=== PATIENT | female | born 1980 | race Caucasian/White ===

== ENCOUNTER 2022-01-10 13:53 | Emergency (ER) | payer BC ==
--- OUTSIDE RECORDS SUMMARY | 2022-01-10 13:54 | XMS REPORT | Clinical Summary ---
:1980 Author Organization [facility] MD [facility] Address [address] [place] [address] Care Team Providers Name Role Phone Edwina Phelps NP Primary Care Provider Donte White MD Unavailable Allergies Active Allergy Reactions Severity Noted Date Comments Penicillin G Hives 04/19/1983 Medications Medication Sig Dispensed Refills Start Date End Date Status buPROPion (Wellbutrin Take 1 tablet by 0 04/19/2015 Active XL) 300 mg 24 hr tablet mouth daily. desvenlafaxine (Pristiq) Take 1 tablet by 0 Active 50 MG ER tablet mouth daily. thyroid (AIR CONDITIONING SPECIALIST Thyroid) 60 Take 1 tablet by 0 9 Active mg tablet mouth daily. 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 Abnormal uterine bleeding unrelated to 2014 A blation for heavy/irregular periods menstrual cycle Depressive disorder 2008 Wellbutrin and Prist ique Other abnormal and inconclusive 04/22/2020 findings on diagnostic imaging of breast Lump in left breast 04/22/2020 Family History Medical History Relation Name Comments Skin cancer Father Jatin Garcia Several skin can cers Breast cancer Maternal Grandmother Hellen Nelson of magui ast cancer that had matassisized Uterine cancer Maternal Grandmother Hellen Nelson Colon cancer Paternal Grandfather Luis Armando Garcia Breast cancer Paternal Grandmother Maryan Patrick Maternal gr eat grand double mastectomy at 50 Relation Name Status Comments Father Jatin Garcia Alive Maternal Grandmother Hellen Nelson Paternal Grandfather Luis Armando Garcia Paternal Grandmother Maryan Patrick Social History Tobacco Use Types Packs/Day Years Used Date Former Smoker Cigarettes 1 3 08/05/1999 - 0 03/05/2003 Smokeless Tobacco: Never Used Comments: Smoked in college Alcohol Use Standard Drinks/Week Comments Not Currently 0 (1 standard drink = 0.6 oz pure alcoho l) Sober since 2018 Alcohol Habits Answer Date Recorded How often do you have a drink containing alcohol? Not asked How many drinks containing alcohol do you have on a Not aske d typical day when you are drinking? How often do you have six or more drinks on one Not asked occasion? Comment: Sober since 201704/22/2020 Sex Assigned at Date Recorded Female 04/16/2020 7:17 AM CDT Obstetrics History Para Term AB IAB SAB Ectopic Multiple Living Live Births 3 2 1 Date Outcome GA Total Labor/2nd/3rd Weight Sex Delivery Anes PTL Grecia A 1 A5 Name Clin Labor Para Para AB Comments Menarche: 13 Parity: 24 OBC: none Hormonal Therapy: pel lets Last Pap: 04-18-2020 (OS) pending result s Abnormal Pap: none Last Mia: 10-16-2019 (OS) Last Colon: age < 50 Breast Bx: none Last Filed Vital Signs Not on file Plan of Treatment Health Maintenance Due Date Last Done Comments COVID-19 Vaccination (1) 1983 Results Not on fileafter 01/10/2021 Insurance Payer Benefit Plan / Subscriber ID Effective Dates Phone Addre ss Type Group [employer]UE [employer] [place] PPO POS [id number] 2019-Present [id number] PPO [place] [address] Care Teams Md Pediatric Allergist Relationship Specialty Start Date End Date Ivy Bland NP PCP - General Cancer Prevention 04/19/[address] [place] [id number] Jose White, PCP - External Follow Up Family Practice 04/05 03/24 MD Helms [address] [place] [id number]
--- OUTSIDE RECORDS SUMMARY | 2022-01-10 13:55 | XMS REPORT | Continuity of Care Document ---
:1980 Author Organization [facility] t Address [address] [place] [address] Care Team Providers Name Role Phone THI Primary Care Physician Unavailable SYSTEM, NOT IN Attending Clinician Unavailable RADIOLOGY Attending Clinician Unavailable Radiology Attending Clinician Unavailable Dana SOLER, S Attending Clinician Kelby CORTEZ Attending Clinician Unavailable Payton WILKINS Attending Clinician Unavailable THI Attending Clinician Unavailable DEA Admitting Clinician Unavailable Payers Payer Name Policy Type Policy Number Effective Date Expiration Date S ource [facility] [id number] 2019 00:00:00 [place] [id number] 2019 00:00:00 Problems Condition Condition Condition Status Onset Resolution Last Treating Co mments Source Name Details Category Date Date Treatment Clinician Date No known No known Disease Unive rs active active ity of problems problems [facility] [place] [facility] Allergies, Adverse Reactions, Alerts Allergy Allergy Status Severity Reaction(s) Onset Inactive Treating Comm ents Source Name Type Date Date Clinician Penicill Propensi Active Rash 0 Univer s in ty to 02-03 ity of adverse 00:00: [place] reaction [address] [facility] PENICILL DRUG Active Rash 0 Univers IN INGREDI 02-03 ity of 00:00: [place] 00 [facility] NO KNOWN Drug Active Univers ALLERGIE Class ity of S [facility] Social History Social Habit Start Date Stop Date Quantity Comments Source History of tobacco Smoker [facility] [place] use Medical [place] Exposure to Not sure [facility] SARS-CoV-2 (event) Medica l Branch Tobacco use and 2021-02-03 2021-02-[address] [facility] exposure 00:00:00 00:00:00 Medical Branch Sex Assigned At [birth year] [facility] y [facility] 00:00:00 00:00:00 Medical Branch Smoking Status Start Date Stop Date Source Former smoker 2021-02-03 00:00:00 2021-02-03 00:00:00 [facility] Medical Branch Medications Ordered Filled Start Stop Current Ordering Indication Dosage Frequency Signature Comments Components Source Medication Medication Date Date Medication? Clinician (SIG) Name Name methylPREDN 2020-08 Yes [id number] 84mg Take 21 Univers ISolone 0-04 9100 tablets by ity of (MEDROL, 00:00: mouth [place] DEANNA,) 4 mg 00 SEE-INSTRU Med ical tablets CTIONS. Branch follow package directions Diclofenac 2020-08 Yes [id number] Apply to Univers Sodium 1 % 0-04 9100 area(s) 2 ity of gel 00:00: (two) [place] 00 times Medical daily as Branch needed for Pain (scale 4-6) (Apply 2 g do not exceed 4 g in a day). methylPREDN 2020-08 Yes [id number] 84mg Take 21 Univers ISolone 0-04 9100 tablets by ity of (MEDROL, 00:00: mouth [place] DEANNA,) 4 mg 00 SEE-INSTRU Med ical tablets CTIONS. Branch follow package directions Diclofenac 2020-08 Yes [id number] Apply to Univers Sodium 1 % 0-04 9100 area(s) 2 ity of gel 00:00: (two) [place] 00 times Medical daily as Branch needed for Pain (scale 4-6) (Apply 2 g do not exceed 4 g in a day). buPROPion Yes TAKE ONE Univ ers XL 300 mg 8-19 (1) ity of 24 hr 00:00: TABLET(S) [place] tablet 00 BY MOUTH Medical ONCE A DAY Branch IN THE MORNING. buPROPion Yes TAKE ONE Univ ers XL 300 mg 8-19 (1) ity of 24 hr 00:00: TABLET(S) [place] tablet 00 BY MOUTH Medical ONCE A DAY Branch IN THE MORNING. doxycycline Yes 100mg Take 100 U nivers hyclate 100 6-09 mg by ity of mg tablet 00:00: mouth [place] 00 now. Medical Branch doxycycline 2021-0 Yes 100mg Take 100 U nivers hyclate 100 6-09 mg by ity of mg tablet 00:00: mouth [place] 00 now. Medical Branch LEAD SYSTEMS ANALYST THYROID 2020-0 Yes 60mg Take 60 mg U nivers 60 mg 6-05 by mouth ity of tablet 00:00: once now. [address] LEAD SYSTEMS ANALYST THYROID 2020-0 Yes 60mg Take 60 mg U nivers 60 mg 6-05 by mouth ity of tablet 00:00: once now. [address] Vital Signs Vital Name Observation Time Observation Value Comments Source Systolic blood 2021-05-08 20:44:00 116 mm[Hg] Univer sity [facility] Diastolic blood 2021-05-08 20:44:00 69 [facility]Hg[facility] 2021-05-08 20:44:00 102 /min [facility] Body height 2021-05-08 20:44:00 160 cm [facility] Body weight 2021-05-08 20:44:00 70.126 kg [facility] BMI 2021-05-08 20:44:00 27.39 kg/m2 [facility] HEIGHT 2020-04-22 10:17:46 161 cm WEIGHT 2020-04-22 10:17:46 69.9 kg Procedures This patient has no known procedures. Encounters Start End Encounter Admission Attending Care Care Encounter Source Date/Time Date/Time Type Type Clinicians Facility Department ID 2020-04-18 Outpatient SYSTEM, [facility] [id number] 15:37:02 PROVIDER Gilmer barlow 2021-06-01 2021-06-01 Outpatient R RADIOLOGY [facility] RAD [id number] Univers 15:11:04 23:59:00 ity of [facility] 2021-06-01 2021-06-01 Hospital Radiology [facility] [id number] Univers 15:00:00 23:59:00 Encounter ESTEFANÍA [id number] [facility] [id number] [facility] [id number] [place] [id number] Branch 2021-06-01 2021-06-01 Outpatient [facility] [id number] Univers 15:00:00 15:00:00 [id number] [facility] 2021-05-08 2021-05-08 [facility] [id number] Univers 15:19:58 15:34:58 Visit [facility] [id number] it y [facility] [id number] Blake as Tanmay?Blea [id number] [address] Medical Office [facility] 2021-05-08 2021-05-08 [facility] [id number] Univers 15:15:00 15:15:00 MARTIN [id number] [facility] 2021-05-08 2021-05-08 [facility] [id number] Univers 15:15:00 15:15:00 [facility] 2021-02-08 2021-02-08 [facility] NUT [id number] Univers 00:00:00 00:00:00 ROSANGELA [facility] 2021-02-03 2021-02-03 [facility] [id number] Univers 08:30:00 08:30:00 ROSANGELA [id number] [facility] 2021-02-03 2021-02-03 [facility] [id number] Univers 08:30:00 08:30:00 [facility] 2020-04-22 2020-04-22 Outpatient MARINO NESS MDA MDA [id number] 13:55:19 23:59:00 CANDICE barlow 2020-04-22 2020-04-22 Outpatient MARINO GALVEZTHI, MDA MDA [id number] 15:33:57 16:15:24 CANDICE barlow 2020-04-22 2020-04-22 Outpatient MARINO NESS MDA MDA [id number] 12:46:38 13:54:00 CANDICE barlow 2020-04-22 2020-04-22 Outpatient MARINO GALVEZTHI, MDA MDA [id number] 09:55:15 11:05:37 CANDICE barlow 2020-04-22 2020-04-22 Outpatient MARINO NESS MDA MDA [id number] 09:56:27 09:56:27 CANDICE Jacobsers o yen 2020-04-22 2020-04-22 Outpatient MARINO NESS MDA MDA [id number] 09:48:44 09:48:44 CANDICE Scherer o yen 2020-04-22 2020-04-22 Outpatient MARINO NESS MDA MDA [id number] 09:48:42 09:48:42 CANDICE Scherer o yen 2020-04-22 2020-04-22 Outpatient MARINO NESS MDA MDA [id number] 09:48:39 09:48:39 CANDICE Scherer o yen 2020-04-22 2020-04-22 Outpatient MDA MDA [id number] 09:46:28 09:46:36 Gilmer barlow 2020-04-20 2020-04-20 Outpatient MARINO NESS MDA MDA [id number] 08:53:05 09:04:28 CANDICE barlow 2020-04-12 2020-04-12 Outpatient R RADIOLOGY [facility] [id number] Univers 08:30:00 08:30:00 [id number] ity [facility] 2020-04-12 2020-04-12 Outpatient R RADIOLOGY [facility] [id number] Univers 00:00:00 00:00:00 ity [facility] 2019-10-16 2019-10-16 Outpatient R RADIOLOGY [facility] [id number] Univers 10:31:48 23:59:00 [facility] Results This patient has no known results.
[2022-01-10 14:47] LABS: Urine Blood Negative (Negative); Urine Glucose Negative (Negative); Urine Protein Negative (Negative); Urine Specific Gravity 1.025 (1.005-1.030); Urine pH 5.5 (5.0-7.0)
[2022-01-10 15:03] LABS: Absolute Lymphocytes (CBC) 1.5 K/uL (0.7-4.9); Hematocrit 38.3 % (36.0-45.0); Lymphocytes % 19.9 % (15.3-44.8); MPV 7.5 fL (7.6-11.3); RBC Red Blood Cell Count 4.56 M/uL (3.86-4.86)
[2022-01-10 15:07] LABS: Barbiturates NEGATIVE (NEGATIVE); Benzodiazepines NEGATIVE (NEGATIVE); Cocaine NEGATIVE (NEGATIVE); METHAMPHETAM POSITIVE (NEGATIVE); Methadone NEGATIVE (NEGATIVE); Opiates NEGATIVE (NEGATIVE); Phencyclidine NEGATIVE (NEGATIVE); THC Cannibis POSITIVE (NEGATIVE)
[2022-01-10 15:11] LABS: Protime INR 0.97
[2022-01-10 15:24] LABS: ALT/SGPT 19 U/L (12-78); AST/SGOT 15 U/L (15-37); Alkaline Phosphatase 45 U/L (45-117); BUN Blood Urea Nitrogen 14 mg/dL (7-18); Bicarbonate 24 mmol/L (21-32); Bilirubin Total 0.4 mg/dL (0.2-1.0); Glomerular Filtration Rate 75 ml/min (=/>90); Glucose Level 141 mg/dL (74-106); NT PRO-BNP 66 pg/mL (<125); Potassium 3.2 mmol/L (3.5-5.1); Protein, Total 7.1 g/dL (6.4-8.2); Sodium Level 136 mmol/L (136-145); Troponin High Sensitivity 5.5 pg/mL (<58.9)
[2022-01-10 15:31] LABS: Bilirubin Direct < 0.1 mg/dL (0-0.2)
[2022-01-10 15:37] LABS: Urine Specific Gravity/Preg 1.025 (1.005-1.030)
[2022-01-10] MEDS ORDERED: LORazepam 2 MG/ML VIAL ONE (15:41)
--- NOTE | 2022-01-10 15:42 | RAD REPORT ---
EXAM DESCRIPTION: Corrina Single View01/10/2022 3:00 pm CLINICAL HISTORY: Chest pain COMPARISON: none FINDINGS: The lungs appear clear of acute infiltrate Blunting of the right lateral costophrenic sulci could indicate a small pleural effusion or pleural t hickening The heart is normal size
--- NOTE | 2022-01-10 16:34 | RAD REPORT ---
EXAM DESCRIPTION: CT - Chest For Pe Angio - 01/10/2022 4:22 pm CLINICAL HISTORY: Chest pain COMPARISON: None. TECHNIQUE: Dynamically enhanced axial 3 mm thick images of the chest were obtained during administra tion of <100> mL Isovue 370 IV contrast. Coronal and oblique reconstruction images were generated and reviewed. Exam utilizes a protocol for optimal evaluation of pulmonary arterial tree. Maximum intensity projections 3D imaging was utilized All CT scans are performed using dose optimization technique as appropriate and may include automated exposure control or mA/KV adjustment according to patient size. FINDINGS: A pulmonary embolus is not seen. A thoracic aortic aneurysm is not noted. A pleural effusion is not seen. A pericardial effusion is not seen. A lung consolidation is not present. Mild chronic opacities within the right lung IMPRESSION: Negative for a pulmonary embolism.
[2022-01-10] MEDS ORDERED: POTASSIUM 25 MEQ EFFERV TAB ONE (17:03)
[2022-01-10] MEDS ORDERED: KETOROLAC 30 MG/ML INJ ONE (17:23)
--- NOTE | 2022-01-10 18:26 | EDPHYS ---
Physician Documentation [facility] Name: Lorie Petty Age: 41 yrs Sex: Female : 1980 Arrival Date: 01/10/2022 Time: 13:53 Bed 16 Private MD: ED Physician Robbie Be HPI: 01/10 14:20 This 41 yrs old Female presents to ER via Wheelchair with complaints of Chest Pain, cp Weakness. 14:20 The patient or guardian reports chest pain that is located primarily in the left cp lateral posterior chest and left lateral anterior chest and left anterior chest. 14:20 Onset: 2 week(s) ago, and became persistent this morning. Associated signs and cp symptoms: Pertinent positives: cough, palpitations, Pertinent negatives: diaphoresis, lower extremity pain, lower extremity swelling, syncope, vomiting. 14:20 The chest pain is described as a pressure. cp 14:20 Duration: The patient or guardian reports a single episode, that is still ongoing, and cp unchanged. Modifying factors: the symptoms are aggravated by movement. Severity of pain: in the emergency department the pain is unchanged despite home interventions. Patient reports history of pulmonary embolism in the past and that she is not currently taking any prescribed blood thinners. 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 - Social history:: Smoking status: Patient denies any tobacco usage or history of. ROS: 14:23 Constitutional: Negative for body aches, chills, fever, poor PO intake. cp 14:23 Eyes: Negative for injury, pain, redness, and discharge. cp 14:23 Cardiovascular: Positive for chest pain, of the left lateral chest, Negative for edema. 14:23 Respiratory: Positive for shortness of breath, Negative for cough, wheezing. 14:23 Abdomen/GI: Negative for abdominal pain, vomiting, diarrhea, constipation. Exam: 14:20 ECG was reviewed by the Attending Physician. cp 14:25 Constitutional: The patient appears in no acute distress, alert, awake, cp non-diaphoretic, non-toxic, well developed, well nourished, anxious, uncomfortable. 14:25 Head/Face: Normocephalic, atraumatic. cp 14:25 Eyes: Periorbital structures: appear normal, Pupils: equal, round, and reactive to cp light and accomodation, Extraocular movements: intact throughout, Conjunctiva: normal, no exudate, no injection, Sclera: no appreciated abnormality, Lids and lashes: appear normal, bilaterally. 14:25 ENT: External ear(s): are unremarkable, Nose: is normal, Mouth: Lips: moist, Oral cp mucosa: pink and intact, moist, Posterior pharynx: Airway: no evidence of obstruction, patent. 14:25 Neck: C-spine: vertebral tenderness, is not appreciated, crepitus, is not appreciated, ROM/movement: is normal, is supple, without pain, no range of motions limitations, no nuchal rigidity. 14:25 Chest/axilla: Inspection: normal, Palpation: crepitus, is not appreciated, tenderness, that is mild, of the left lateral posterior chest and left lateral anterior chest and left anterior chest. 14:25 Cardiovascular: Rate: normal, Rhythm: regular, Pulses: Pulses are 2+ in right radial artery and left radial artery. Heart sounds: murmur, not appreciated, Edema: is not appreciated. 14:25 Respiratory: the patient does not display signs of respiratory distress, Respirations: normal, no use of accessory muscles, no retractions, labored breathing, is not present, Breath sounds: are clear throughout, no decreased breath sounds, no stridor, no wheezing. 14:25 Abdomen/GI: Inspection: abdomen appears normal, Palpation: abdomen is soft and non-tender, in all quadrants. 14:25 Back: pain, that is moderate, of the left scapular area and left subscapular area, ROM is painful, vertebral tenderness, is not appreciated. 14:25 Skin: cellulitis, is not appreciated, no rash present. 14:25 Neuro: Orientation: to person, place \T\ time. Mentation: is normal, Cerebellar function: is grossly normal, Motor: moves all fours, strength is normal, Sensation: is normal. 18:03 ECG was reviewed by the Attending Physician. Vital Signs: 14:00 BP 143 / 85; Pulse 112; Resp 18; Temp 99.3; Pulse Ox 100% ; Weight 61.23 kg; Height 5 ll1 ft. 2 in. (157.48 cm); Pain 8/10; 15:35 BP 124 / 80; Pulse 90; Resp 14 S; Pulse Ox 100% ; jg9 16:00 BP 117 / 85; Pulse 74; Resp 14 S; Pulse Ox 99% on R/A; jg9 18:15 BP 108 / 78; Pulse 73; Resp 12 S; Pulse Ox 100% on R/A; jg9 14:00 Body Mass Index 24.69 (61.23 kg, 157.48 cm) ll1 MDM: 15:09 Patient medically screened. 18:25 Data reviewed: vital signs, nurses notes, lab test result(s), EKG, radiologic studies, cp CT scan, plain films. 18:25 Differential diagnosis: abnormal EKG, acute myocardial infarction, acute pericarditis, cp costochondritis, pericarditis, pleurisy, pneumonia, pneumothorax, pulmonary embolus. Test interpretation: by ED physician or midlevel provider: ECG, plain radiologic studies. Special discussion: Based on the patient's history, exam, and Dx evaluation, there is no indication for emergent intervention or inpatient Tx. It is understood by the patient/guardian that if the Sx's persist or worsen they need to return immediately for re-evaluation. 01/10 14:08 Order name: Basic Metabolic Panel; Complete Time: 15:45 01/10 15:45 Interpretation: Normal except: K 3.2; GLUC 141; GFR 75. 01/10 14:08 Order name: CBC with Diff; Complete Time: 15:09 01/10 15:10 Interpretation: Normal except: MCV 84.0; MPV 7.5. 01/10 14:08 Order name: D-Dimer; Complete Time: 15:45 01/10 15:46 Interpretation: D-DIMER 480; Reviewed. 01/10 14:08 Order name: LFT's; Complete Time: 15:45 01/10 14:08 Order name: Magnesium; Complete Time: 15:45 01/10 14:08 Order name: NT PRO-BNP; Complete Time: 15:45 cp 06/08 14:08 Order name: PT-INR; Complete Time: 15:45 cp 06/08 14:08 Order name: Troponin HS; Complete Time: 15:45 cp /08 14:08 Order name: XRAY Chest (1 view); Complete Time: 15:45 cp /08 14:08 Order name: UDS; Complete Time: 15:09 cp 08 15:10 Interpretation: Normal except: METHAMPHETAMINE POSITIVE; THC POSITIVE. cp /08 14:48 Order name: Urine Dipstick-Ancillary; Complete Time: 15:09 EDMS 01/10 17:49 Interpretation: Normal except: UKET 1+. cp / 14:54 Order name: Urine --Ancillary (enter results); Complete Time: 15:45 bd 01/10 15:48 Order name: CT Chest For PE Angio; Complete Time: 16:42 cp 08 16:42 Interpretation: Report reviewed. cp 01/10 17:43 Order name: Troponin High Sensitivity; Complete Time: 18:25 cp 08 14:03 Order name: EKG; Complete Time: 14:03 ll1 /08 14:03 Order name: EKG - Nurse/Tech; Complete Time: 14:03 ll1 08 14:08 Order name: Cardiac monitoring; Complete Time: 15:31 cp /08 14:08 Order name: IV Saline Lock; Complete Time: 14:50 cp 08 14:08 Order name: Labs collected and sent; Complete Time: 14:50 cp 08 14:08 Order name: O2 Per Protocol; Complete Time: 15:31 cp 08 14:08 Order name: O2 Sat Monitoring; Complete Time: 15:31 cp 08 14:08 Order name: Urine Dipstick-Ancillary (obtain specimen); Complete Time: 14:48 cp 08 14:08 Order name: Urine Test (obtain specimen); Complete Time: 14:48 cp 08 17:43 Order name: EKG; Complete Time: 17:43 cp 08 17:43 Order name: EKG - Nurse/Tech; Complete Time: 18:39 cp EC:20 Rate is 120 beats/min. Rhythm is regular. AR interval is normal. QRS interval is cp normal. QT interval is normal. T waves are Inverted in lead aVR. Interpreted by me. Reviewed by me. 18:03 Rate is 75 beats/min. Rhythm is regular. AR interval is normal. QRS interval is normal. cp QT interval is normal. T waves are Inverted in leads aVL, aVR. Interpreted by me. Reviewed by me. Administered Medications: 15:10 CANCELLED (Physician Discretion): Aspirin Chewable Tablet 324 mg PO once; 81 mg tablets cp x 4 15:41 Drug: Ativan (LORazepam) 0.5 mg {Note: RASS-0.} Route: IVP; Site: left antecubital; jg9 16:29 Follow up: Response: No adverse reaction; Anxiety decreased jg9 17:12 Drug: Potassium Effervescent Tablet 50 mEq Route: PO; jg9 17:21 Follow up: Response: No adverse reaction jg9 17:21 Drug: Ketorolac 15 mg Route: IVP; Site: left antecubital; jg9 17:42 Follow up: Response: No adverse reaction jg9 Disposition: 22:32 Co-signature as Attending Physician, Robbie Be DO I was immediately available on-site ms3 in the Emergency Department for consultation in the care of the patient. . Disposition Summary: 01/10/22 18:26 Discharge Ordered Location: Home cp Problem: new cp Symptoms: have improved cp Condition: Stable cp Diagnosis - Chest pain, unspecified cp Followup: cp - With: Aaron Puentes MD - When: 2 - 3 days - Reason: Recheck today's complaints Discharge Instructions: - Discharge Summary Sheet cp - Nonspecific Chest Pain, Adult cp - Aspirin and Your Heart cp Forms: - Medication Reconciliation Form cp - Thank You Letter cp - Antibiotic Education cp - Prescription Opioid Use cp Prescriptions: - Diclofenac Sodium 75 mg Oral Tablet Sustained Release - take 1 tablet by ORAL route 2 times per day; 30 tablet; Refills: 0, Product cp Selection Permitted Signatures: Dispatcher [employer] EDMS Marky Sarabia PA PA cp Leila Hsieh RN RN ll1 Robbie Be DO DO ms3 Becky Mo RN RN jg9 Corrections: (The following items were deleted from the chart) 15:10 15:10 Aspirin Chewable Tablet 324 mg PO once; 81 mg tablets x 4 ordered. cp cp
--- NOTE | 2022-01-10 18:26 | ER ---
Nurse's Notes [facility] Name: Lorie Petty Age: 41 yrs Sex: Female : 1980 Arrival Date: 01/10/2022 Time: 13:53 Bed 16 Private MD: Diagnosis: Chest pain, unspecified Presentation: 01/10 14:00 Chief complaint: Patient states: L sided CP, shoulder pain, back pain off/on for 2 ll1 weeks, worse and more constant today. + cough. Coronavirus screen: Vaccine status: Patient reports being unvaccinated. Client denies travel out of the [place] in the last 14 days. cough unrelated to allergies, Client presents with at least one sign or symptom that may indicate coronavirus-19. Standard/surgical mask placed on the client. Ebola Screen: Patient denies travel to an Ebola-affected area in the 21 days before illness onset. Initial Sepsis Screen: Does the patient meet any 2 criteria? No. Patient's initial sepsis screen is negative. Does the patient have a suspected source of infection? No. Patient's initial sepsis screen is negative. Risk Assessment: Do you want to hurt yourself or someone else? Patient reports no desire to harm self or others. Onset of symptoms was December 27, 2021. 14:00 Method Of Arrival: Wheelchair ll1 14:00 Acuity: RIO 3 ll1 Triage Assessment: 14:04 General: Appears uncomfortable, Behavior is cooperative, appropriate for age, anxious. ll1 Pain: Complains of pain in L chest Pain. Neuro: No deficits noted. Cardiovascular: Reports chest pain, shortness of breath. 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 - Social history:: Smoking status: Patient denies any tobacco usage or history of. Screenin:42 Abuse screen: Denies threats or abuse. Denies injuries from another. Nutritional jg9 screening: No deficits noted. Tuberculosis screening: No symptoms or risk factors identified. Fall Risk None identified. Assessment: 15:42 Reassessment: No changes from previously documented assessment. Patient and/or family jg9 updated on plan of care and expected duration. Pain level reassessed. Patient is alert, oriented x 3, equal unlabored respirations, skin warm/dry/pink. Pain: Complains of pain in chest Pain does not radiate. Pain began unknown patient under stress. 16:29 Reassessment: Patient reports she is not feeling anxious but her chest pain is about jg9 2/10 and she is pretty sleepy Patient states feeling better. Patient states symptoms have improved. 17:24 Reassessment: No changes from previously documented assessment. Patient and/or family jg9 updated on plan of care and expected duration. Pain level reassessed. Patient is alert, oriented x 3, equal unlabored respirations, skin warm/dry/pink. Vital Signs: 14:00 BP 143 / 85; Pulse 112; Resp 18; Temp 99.3; Pulse Ox 100% ; Weight 61.23 kg; Height 5 ll1 ft. 2 in. (157.48 cm); Pain 8/10; 15:35 BP 124 / 80; Pulse 90; Resp 14 S; Pulse Ox 100% ; jg9 16:00 BP 117 / 85; Pulse 74; Resp 14 S; Pulse Ox 99% on R/A; jg9 18:15 BP 108 / 78; Pulse 73; Resp 12 S; Pulse Ox 100% on R/A; jg9 14:00 Body Mass Index 24.69 (61.23 kg, 157.48 cm) ll1 ED Course: 13:53 Patient arrived in ED. rg4 13:55 Arm band placed on. ll1 14:02 Triage completed. ll1 14:07 Marky Sarabia PA is PHCP. cp 14:07 Robbie Be DO is Attending Physician. cp 14:48 UDS Sent. 5 14:49 Inserted saline lock: 20 gauge in left antecubital area, using aseptic technique. Blood zm collected. 14:50 Basic Metabolic Panel Sent. zm 14:50 CBC with Diff Sent. zm 14:50 D-Dimer Sent. zm 14:50 LFT's Sent. zm 14:50 Troponin HS Sent. zm 14:50 NT PRO-BNP Sent. zm 14:50 PT-INR Sent. zm 14:50 Magnesium Sent. zm 15:02 XRAY Chest (1 view) In Process Unspecified. EDMS 15:03 Becky Mo, RN is Primary Nurse. jg9 15:43 Patient has correct armband on for positive identification. Bed in low position. Call jg9 light in reach. Side rails up X 1. groundwater monitoring technician on. Pulse ox on. NIBP on. 15:43 Patient maintains SpO2 saturation greater than 95% on room air. jg9 16:24 CT Chest For PE Angio In Process Unspecified. EDMS 18:25 Aaron Puentes MD is Referral Physician. cp Administered Medications: 15:10 CANCELLED (Physician Discretion): Aspirin Chewable Tablet 324 mg PO once; 81 mg tablets cp x 4 15:41 Drug: Ativan (LORazepam) 0.5 mg {Note: RASS-0.} Route: IVP; Site: left antecubital; jg9 16:29 Follow up: Response: No adverse reaction; Anxiety decreased jg9 17:12 Drug: Potassium Effervescent Tablet 50 mEq Route: PO; jg9 17:21 Follow up: Response: No adverse reaction jg9 17:21 Drug: Ketorolac 15 mg Route: IVP; Site: left antecubital; jg9 17:42 Follow up: Response: No adverse reaction jg9 Medication: 15:43 VIS not applicable for this client. jg9 Outcome: 18:26 Discharge ordered by MD. cp 18:40 Patient left the ED. jg9 Signatures: Dispatcher [employer] EDNC Marky Sarabia PA PA cp Garcia, Rubi 4 Alessandro, [facility] Leila Hsieh, RN RN ll1 Becky Mo, RN RN jg9 Shawna Francois Corrections: (The following items were deleted from the chart) 14:05 14:00 Resp 18bpm; 61.23 kg; Height 5 ft. 2 in.; BMI: 24.6; Pain 8/10; ll1 ll1
[2022-01-10 19:30] VITALS: TEMP 99.3
[2022-01-10 20:00] VITALS: BP 108/78; O2SAT 100
--- NOTE | 2022-01-11 14:19 | EKG ---
Test Date: 2022-01-10 Test Time: 17:52:57 Household Worker: JANAE MEASUREMENT RESULTS: Intervals: Rate: 75 HI: 156 QRSD: 92 QT: 390 QTc: 435 [place]: P: 69 HI: 156 QRS: 79 T: 69 INTERPRETIVE STATEMENTS: Normal sinus rhythm with sinus arrhythmia Normal ECG No previous ECG available for comparison Electronically Signed On 01-11-22 14:18:49 CDT by Aaron Puentes
--- NOTE | 2022-01-11 14:20 | EKG ---
Test Date: 2022-01-10 Test Time: 13:59:53 Refresh Technician: RANJIT MEASUREMENT RESULTS: Intervals: Rate: 120 FL: 154 QRSD: 96 QT: 336 QTc: 474 [place]: P: 79 FL: 154 QRS: 81 T: 38 INTERPRETIVE STATEMENTS: Sinus tachycardia Possible Left atrial enlargement Nonspecific ST abnormality Abnormal ECG No previous ECG available for comparison Electronically Signed On 01-11-22 14:18:56 CDT by Aaron Puentes
== END 2022-01-10 18:40 | disposition home or self-care (01) ==
LOC: ER 13:53
DX: R07.9 Chest pain, unspecified (principal); R53.1 Weakness; F41.9 Anxiety disorder, unspecified; Z88.0 Allergy status to penicillin
CPT/HCPCS: 93005 ×2; 85025; 80048; 36415; 83735; 81025; 85610; 85379; 80076; 81003; 84484 ×2; 83880; 80307; 71275; 71045; 96375; 96374; 99285; Q9967

== ENCOUNTER 2025-05-16 19:56 | Emergency (ER) | payer BC ==
--- OUTSIDE RECORDS SUMMARY | 2025-05-16 20:01 | XMS REPORT | Clinical Summary ---
Author Name Unknown Organization [facility] Address [address] [place] [address] Care Team Providers Care Manager Local Name Role Phone Edwina Phelps NP, Ivy Primary Care Provider [phone] Jose White MD Unavailable [phone] Allergies Active Allergy Reactions Criticality Noted Date Comments Penicillin G Hives 04/19/1983 Medications buPROPion (Wellbutrin XL) 300 mg 24 hr tablet Take 1 tablet by mouth daily. 04/19/2015 Active desvenlafaxine (Pristiq) 50 MG ER tablet Take 1 tablet by mouth daily. Active thyroid (BUTTON INSPECTOR Thyroid) 60 mg tablet Take 1 tablet by mouth daily. 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 Abnormal uterine bleeding un related to menstrual cycle 2013 Ablation for heavy/irregular periods Depressive disorder 2009 Wellbutrin a nd Pristique Other abnormal and inconclus oliver findings on diagnostic imaging of breast 04/22/2020 Lump in left breast 04/22/2020 Family History Medical History Relation Name Comments Skin cancer Father Jatin Garcia Several skin cancers Breast cancer Maternal Grandmother Hellen Nelson of breast cancer that had matassisized Uterine cancer Maternal Grandmother Hellen Nelson Colon cancer Paternal Grandfather Luis Armando Garcia Breast cancer Paternal Grandmother Maryan Patrick Matern al great grand double mastectomy at 50 Relation Name Status Comments Father Jatin Garcia Alive Maternal Grandmother Hellen Nelson Paternal Grandfather Luis Armando Gracia Paternal Grandmother Maryan Patrick Social History Tobacco Use Types Packs/Day Years Used Date Smoking Tobacco: Former Cigarettes 1 3.6 0 08/05/1999 - 03/05/2003 Smokeless Tobacco: Never Comments:Smoked in college Alcohol Use Standard Drinks/Week Comments Not Currently 0 (1 standard drink = 0.6 oz pur e alcohol) Sober since 2018 Comments No Sex and Gender Information Value Date Recorded Sex Assigned at Female 04/16/2020 7:17 AM CDT Legal Sex Female 10:52 AM CDT Gender Identity Female 04/16/2020 7:17 AM CDT Sexual Orientation Straight 04/16/2020 7: 17 AM CDT Obstetrics History Para Term AB IAB SAB Ectopic Multiple Livin g Live Births 3 2 1 Date Outcome GA Total Labor Labor/2nd/3rd Weight Sex Type Anes PTL Grecia A1 A5 Name Clin Para Para AB Comments Menarche: 13 Parity: 24 OBC: none Hormonal Therapy: pellets Last Pap: 04-18-2020 (OS) pending results Abnormal Pap: none Last Mia: 10-16-2019 (OS) Last Colon: age < 50 Breast Bx: none Plan of Treatment Health Maintenance Due Date Last Done Comments COVID-19 Vaccine (2023-2 5 season) 2025 Influenza Vaccine (#1) 2025 Pneumococcal Vaccine Aged Out No long er eligible based on patient's age to complete this topic [place] [address] PPO POS Care Teams Manager Local Relationship Specialty Start Date End Date Ivy Bland NP [address] [place] [id number] [email or web address] PCP - General Cancer Prevention 04/19/20 Jose White MD [address] [place] [address] [address] [place] [address] [email or web address] PCP - External Follow Up A Family [facility] 04/22/20
[2025-05-16] MEDS ORDERED: HYDROMORPHONE HCL 1 MG/ML INJ ONE (20:20)
[2025-05-16] MEDS ORDERED: ONDANSETRON 4 MG/2 ML VIAL ONE (20:20)
[2025-05-16 20:24] LABS: Absolute Lymphocytes (CBC) 5.1 K/uL (0.7-4.9); Hematocrit 35.4 % (36.0-45.0); Hemoglobin 11.8 g/dL (12.0-15.0); MCH 29.2 pg (27.0-35.0); MCHC 33.3 g/dL (32.0-36.0); MCV 87.6 fL (80-100); MPV 7.1 fL (7.6-11.3); Nucleated RBC Absolute Count 0.0 (0-0); Nucleated Red Blood Cells % 0.0 % (0-0); RBC Red Blood Cell Count 4.05 M/uL (3.86-4.86); White Blood Count 13.40 thou/uL (4.3-10.9)
[2025-05-16 20:34] LABS: PT Prothrombin Time 11.6 SECONDS (10-13.0); Protime INR 1.03
[2025-05-16] MEDS ORDERED: LORazepam 2 MG/ML VIAL ONE (20:38)
[2025-05-16 20:59] LABS: ALT/SGPT 57 U/L (13-56); AST/SGOT 31 U/L (15-37); Albumin 3.7 g/dL (3.4-5.0); Albumin/Globulin Ratio 1.0 (1.1-1.8); Alkaline Phosphatase 97 U/L (45-117); Anion Gap 10.1 mEq/L (5.0-15.0); BUN Blood Urea Nitrogen 12 mg/dL (7-18); Globulin 3.7 g/dL (2.3-3.5); Glucose Level 154 mg/dL (74-106); Magnesium 2.1 mg/dL (1.6-2.4); NT PRO-BNP 34 pg/mL (<125); Potassium 3.1 mEq/L (3.5-5.1); Troponin High Sensitivity 4.7 pg/mL (<58.9)
[2025-05-16 21:00] LABS: Bilirubin Indirect, Calculated 0.2 mg/dL (0.2-0.8)
[2025-05-16 21:21] LABS: Sqamous Epithelial <5 /HPF (None Seen); Urine Culture Reflex Order NOT NEEDED; Urine Microscopic Reflex YN ORDER UMIC
--- NOTE | 2025-05-16 21:34 | RAD REPORT ---
EXAMINATION: ONE VIEW CHEST XR CLINICAL INDICATION: CHEST PAIN TECHNIQUE: Frontal chest projection is submitted. Examination is limited by patient positioning and t echnique. COMPARISON: 11/26/2022 FINDINGS: Lungs are grossly clear. Small right pleural effusion suspected. The heart is normal in size. No disp laced fractures identified.
--- NOTE | 2025-05-16 21:41 | RAD REPORT ---
EXAM: CTA of the chest, abdomen and pelvis HISTORY: Chest pain and back pain chest pain COMPARISON: None TECHNIQUE: Multiple contiguous axial images were obtained a CTA of the chest and abdomen with contras t per aortic dissection protocol. This involves 3D reconstructions, MIPs, volume rendered images and/or shaded surface rendering. One or more of the following dose reduction techniques were used: Au tomated exposure control, adjustment of the mA and/or kV according to patient size, and/or iterative reconstruction. Unless otherwise specified, incidental findings do not require dedicated im aging follow-up. Sagittal and coronal 3-D MIP reformats were performed. FINDINGS: PULMONARY ARTERIES: Normal in caliber without filling defects to suggest pulmonary emboli. ASCENDING THORACIC AORTA: Normal caliber without evidence of dissection or aneurysmal dilatation. DESCENDING THORACIC AORTA: Normal caliber without evidence of dissection or aneurysmal dilatation. ABDOMINAL AORTA: Normal caliber without evidence of dissection or aneurysmal dilatation. CELIAC TRUNK: Patent. SMA: Patent ARCHIE: Patent RENAL ARTERIES: Bilateral single renal arteries without significant atherosclerotic disease. MEDIASTINUM: No hilar or mediastinal lymphadenopathy. Enlarged somewhat inflamed appearing lymph node in the left axilla measuring 4 cm. LUNGS: No focal infiltrates or masses. PLEURAL SPACE: No pleural effusion or pneumothorax. LIVER: Mild fatty liver.. SPLEEN: Unremarkable. PANCREAS: Unremarkable. KIDNEYS: Unremarkable. ADRENALS: Unremarkable. BOWEL: There is a large amount of stool retained throughout the colon.. RETROPERITONEUM: No lymphadenopathy. BONES: Truncated right first rib. IMPRESSION: Enlarged left axillary lymph nodes, largest measuring 4 cm, appearing mildly inflamed. This may be re active, however adenopathy in this region can also be seen in cases of neoplasm, including breast neoplasm. Follow-up nonemergent mammography and axillary sonography would be advised. No evidence of thoracic or abdominal aortic aneurysm or dissection. Significant constipation.
[2025-05-16] MEDS ORDERED: NA CHLORIDE 0.9% 1,000 ML ONE (23:05)
[2025-05-16] MEDS ORDERED: KETOROLAC 30 MG/ML INJ ONE (23:31)
[2025-05-16] MEDS ORDERED: CLINDAMYCIN 600MG/D5W 50 ML IV ONE (23:31)
[2025-05-17] MEDS ORDERED: METOCLOPRAMIDE 10 MG/2mL INJ ONE (01:00)
[2025-05-17] MEDS ORDERED: KETOROLAC 30 MG/ML INJ ONE (01:00)
[2025-05-17] MEDS ORDERED: DIPHENHYDRAMINE 50 MG/ML VIAL ONE (01:01)
[2025-05-17] MEDS ORDERED: NA CHLORIDE 0.9% 250 ML ONE (01:01)
--- NOTE | 2025-05-17 01:26 | ER ---
Nurse's Notes [facility] Name: Lorie Petty Age: 45 yrs Sex: Female : 1980 Arrival Date: 05/16/2025 Time: 19:56 Bed 8 Private MD: Diagnosis: Chest pain, unspecified;Localized enlarged lymph nodes-Left Axilla;Headache;Hypokalemia Presentation: 05/16 20:03 Chief complaint: Patient states: SUDDEN ONSET PAIN UNDER LT ARM, NAUSEA. PT DENIES dd2 VOMITING. Coronavirus screen: At this time, the client does not indicate any symptoms associated with coronavirus-19. Ebola Screen: No symptoms or risks identified at this time. Initial Sepsis Screen: Does the patient meet any 2 criteria? No. Patient's initial sepsis screen is negative. Does the patient have a suspected source of infection? No. Patient's initial sepsis screen is negative. Risk Assessment: Do you want to hurt yourself or someone else? Patient reports no desire to harm self or others. Onset of symptoms was May 16, 2025. 20:03 Method Of Arrival: Ambulatory dd2 20:03 Acuity: RIO 3 dd2 Triage Assessment: 20:05 General: Appears in no apparent distress. uncomfortable, Behavior is appropriate for dd2 age, anxious. Pain: Complains of pain in left lateral anterior chest. Cardiovascular: Reports chest pain, nausea, JVD is absent Patient's skin is warm and dry. 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 - Infectious Disease History:: Denies. - Social history:: Smoking status: Patient denies any tobacco usage or history of. Screenin:33 [facility] ED Fall Risk Assessment (Adult) History of falling in the last 3 months, bp including since admission No falls in past 3 months (0 pts) Confusion or Disorientation No (0 pts) Intoxicated or Sedated No (0 pts) Impaired Gait No (0 pts) Mobility Assist Device Used No (0 pt) Altered Elimination No (0 pt) Score/Fall Risk Level 0 - 2 = Low Risk Oriented to surroundings, Maintained a safe environment, Educated pt \\T\\ family on fall prevention, incl call for assistance when getting out of bed, Assessed \\T\\ reinforced patient's understanding of fall precautions, Hourly rounding (assess needs \\T\\ fall precautionary measures) done, Used ambulatory aids as needed (educated on \\T\\ assisted with), Used gait belt as appropriate. Abuse screen: Denies threats or abuse. Nutritional screening: No deficits noted. Tuberculosis screening: No symptoms or risk factors identified. Assessment: 20:33 Reassessment: Patient and/or family updated on plan of care and expected duration. Pain bp level reassessed. Patient is alert, oriented x 3, equal unlabored respirations, skin warm/dry/pink. General: Appears distressed, uncomfortable, Behavior is cooperative, anxious. Pain: Complains of pain in left lateral anterior chest Pain does not radiate. Pain currently is 8 out of 10 on a pain scale. Pain began 4 hours ago. Neuro: Level of Consciousness is awake, alert, obeys commands, Oriented to person, place, time, situation, Appropriate for age. Cardiovascular: Reports chest pain, "UNDER THE ARM PIT" Heart tones S1 S2 present Capillary refill < 3 seconds in bilateral fingers Patient's skin is warm and dry. Rhythm is sinus rhythm. Respiratory: Airway is patent Respiratory effort is even, unlabored, Respiratory pattern is regular, symmetrical, Breath sounds are clear bilaterally. GI: : No signs and/or symptoms were reported regarding the genitourinary system. 22:11 Reassessment: Patient appears in no apparent distress at this time. Patient and/or bm8 family updated on plan of care and expected duration. Pain level reassessed. Patient is alert, oriented x 3, equal unlabored respirations, skin warm/dry/pink. Patient denies pain at this time. Patient states feeling better. Patient states symptoms have improved. 23:49 Reassessment: Patient appears in no apparent distress at this time. No changes from vc1 previously documented assessment. Patient and/or family updated on plan of care and expected duration. Pain level reassessed. 05/17 00:05 Reassessment: Patient appears in no apparent distress at this time. No changes from vc1 previously documented assessment. Patient and/or family updated on plan of care and expected duration. Pain level reassessed. 01:06 Reassessment: Patient appears in no apparent distress at this time. Patient and/or bm8 family updated on plan of care and expected duration. Pain level reassessed. Patient is alert, oriented x 3, equal unlabored respirations, skin warm/dry/pink. Pain: Complains of pain in right frontal area, right temporal area and right worship Pain currently is 7 out of 10 on a pain scale. Quality of pain is described as aching. Neuro: Level of Consciousness is awake, alert, obeys commands, Oriented to person, place, time, situation, Appropriate for age Reports headache in left parietal area. Cardiovascular: Denies chest pain. Respiratory: Airway is patent Respiratory effort is even, unlabored, Respiratory pattern is regular, symmetrical, Breath sounds are clear bilaterally. GI: No deficits noted. No signs and/or symptoms were reported involving the gastrointestinal system. : No deficits noted. No signs and/or symptoms were reported regarding the genitourinary system. EENT: No deficits noted. No signs and/or symptoms were reported regarding the EENT system. Derm: No deficits noted. No signs and/or symptoms reported regarding the dermatologic system. Musculoskeletal: No deficits noted. No signs and/or symptoms reported regarding the musculoskeletal system. 01:43 Reassessment: Patient appears in no apparent distress at this time. Patient and/or bm8 family updated on plan of care and expected duration. Pain level reassessed. Patient is alert, oriented x 3, equal unlabored respirations, skin warm/dry/pink. Patient denies pain at this time. Patient states feeling better. Patient states symptoms have improved. Vital Signs: 05/16 20:03 BP 142 / 90; Pulse 116; Resp 17; Temp 98.4; Pulse Ox 100% ; Weight 61.23 kg; Pain 6/10; dd2 20:33 BP 142 / 90; Pulse 120; Resp 20; Temp 98.4; Pulse Ox 100% on R/A; Pain 8/10; bp 21:59 BP 127 / 74; Pulse 113; Resp 15; Temp 98.4; Pulse Ox 99% ; Pain 0/10; vc1 23:00 BP 127 / 83; Pulse 113; Resp 24; Pulse Ox 95% ; vc1 23:30 BP 120 / 86; Pulse 110; Resp 24; Pulse Ox 95% ; vc1 05/17 00:00 BP 116 / 80; Pulse 102; Resp 20; Pulse Ox 96% ; vc1 01:06 BP 116 / 78; Pulse 89; Resp 17; Temp 98.4; Pulse Ox 97% ; Pain 7/10; bm8 10 20:03 Pain Scale: Adult dd2 20:33 Pain Scale: Adult bp 21:59 Pain Scale: Adult vc1 01:06 Pain Scale: Adult bm8 Brave Coma Score: 05/16 20:33 Eye Response: spontaneous(4). Motor Response: obeys commands(6). Verbal Response: bp oriented(5). Total: 15. 22:11 Eye Response: spontaneous(4). Motor Response: obeys commands(6). Verbal Response: bm8 oriented(5). Total: 15. 05/17 01:06 Eye Response: spontaneous(4). Motor Response: obeys commands(6). Verbal Response: bm8 oriented(5). Total: 15. ED Course: 05/16 19:57 Patient arrived in ED. mr 20:00 Marky Sarabia PA-C is PHCP. cp 20:00 Marky Chaney MD is Attending Physician. cp 20:05 Triage completed. dd2 20:05 Arm band placed on right wrist. dd2 20:33 Patient has correct armband on for positive identification. Bed in low position. Call bp light in reach. Side rails up X 1. Adult w/ patient. Client placed on continuous cardiac and pulse oximetry monitoring. NIBP monitoring applied. hall monitor on. Pulse ox on. NIBP on. Door closed. Noise minimized. Warm blanket given. Pillow given. Verbal reassurance given. Head of bed elevated. 20:33 No provider procedures requiring assistance completed. Inserted saline lock: 20 gauge bp in right antecubital area, using aseptic technique. Blood collected. Flushed with 10 mL NS. Patient maintains SpO2 saturation greater than 95% on room air. 20:36 EKG done, by ED staff. oe 21:06 Mukul Griffith, RN is Primary Nurse. bm8 21:28 CT Aorta for Dissection In Process Unspecified. EDMS 21:30 XRAY Chest (1 view) In Process Unspecified. EDMS 05/17 01:08 Repeat lab(s) drawn. by me, sent to lab. bm8 01:43 Provided Education on: post er care. bm8 01:43 IV discontinued, intact, bleeding controlled, No redness/swelling at site. Pressure bm8 dressing applied. Administered Medications: 05/16 20:31 Drug: HYDROmorphone IVP 1 mg IVP once Route: IVP; Site: right antecubital; bp 21:54 Follow up: Response: No adverse reaction bm8 20:31 Drug: Ondansetron IVP 4 mg IVP once; over 2 minutes Route: IVP; Site: right antecubital;bp 21:53 Follow up: Response: No adverse reaction bm8 21:07 Drug: Ativan IVP 1 mg IVP once Route: IVP; Site: right antecubital; bm8 21:53 Follow up: Response: No adverse reaction bm8 23:19 Drug: NS 0.9% IV 1000 ml IV at 1 bolus Per protocol; to be given as a bolus over 60 bm8 minutes Route: IV; Rate: 1 bolus; Site: right antecubital; 05/17 00:38 Follow up: Response: No adverse reaction; IV Status: Completed infusion bm8 05/16 23:38 Drug: Ketorolac IVP 15 mg IVP once Route: IVP; Site: right antecubital; bm8 05/17 00:37 Follow up: Response: No adverse reaction bm8 05/16 23:38 Drug: Clindamycin IVPB 600 mg IVPB once over 30 mins; (mix in 50 mL) Route: IVPB; bm8 Infused Over: 30 mins; Site: right antecubital; 05/17 00:37 Follow up: Response: No adverse reaction; IV Status: Completed infusion bm8 01:05 Drug: metoCLOPramide IVP 10 mg IVP once; over 1 to 2 minutes Route: IVP; Site: right bm8 antecubital; :44 Follow up: Response: No adverse reaction bm8 01:05 Drug: diphenhydrAMINE IVP 25 mg IVP once Route: IVP; Site: right antecubital; bm8 :43 Follow up: Response: No adverse reaction bm8 01:05 Drug: Dexamethasone IVP 10 mg IVP once; (not to exceed 40 mg) Route: IVP; Site: right bm8 antecubital; :43 Follow up: Response: No adverse reaction bm8 01:05 Drug: Ketorolac IVP 15 mg IVP once Route: IVP; Site: right antecubital; bm8 01:43 Follow up: Response: No adverse reaction bm8 01:06 Drug: NS 0.9% IV 250 ml IV at 250 bolus once; to be given as a bolus over 30 minutes bm8 Route: IV; Rate: 250 bolus; Site: right antecubital; 01:43 Follow up: Response: No adverse reaction; IV Status: Completed infusion bm8 Medication: 05/16 20:33 VIS not applicable for this client. bp Outcome: 05/17 01:26 Discharge ordered by MD. cp 01:43 Discharged to home via wheelchair, bm8 01:43 Condition: stable 01:43 Discharge instructions given to patient, family, Instructed on discharge instructions, follow up and referral plans. no drinking with medication, no driving heavy equipment, medication usage, safety practices, Demonstrated understanding of instructions, follow-up care, medications, Prescriptions given X 4, 01:44 Patient left the ED. bm8 Signatures: Dispatcher [employer] EDMS Trupti Perez, Reg Reg mr Sarabia Marky, PA-C PA-C Dominic Mckeon Brian, RN RN bp Pamela Zee RN RN vc1 Mukul Griffith RN RN bm8 MAURICE DE LOS SANTOS RN RN dd2
--- NOTE | 2025-05-17 01:26 | EDPHYS ---
Physician Documentation [facility] Name: Lorie Petty Age: 45 yrs Sex: Female : 1980 Arrival Date: 05/16/2025 Time: 19:56 Bed 8 Private MD: ED Physician Marky Chaney HPI: 05/17 00:45 This 45 yrs old Female presents to ER via Ambulatory with complaints of Chest Pain and cp Left Arm Axillary Pain. 00:45 Onset: The symptoms/episode began/occurred suddenly, last night. Associated signs and cp symptoms: Pertinent positives: fever, shortness of breath, body aches, nausea, radiating pain to back, Pertinent negatives: abdominal pain, cough, diarrhea, headache, vomiting. pain similar to when diagnosed with pulmonary embolism. 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 - Infectious Disease History:: Denies. - Social history:: Smoking status: Patient denies any tobacco usage or history of. ROS: 05/17 00:50 Constitutional: Positive for body aches, fever, Negative for poor PO intake, cp 00:50 Cardiovascular: Positive for chest pain, of the left upper chest, Negative for edema, cp palpitations, 00:50 Eyes: Negative for injury, pain, redness, and discharge, cp 00:50 ENT: Negative for drainage from ear(s), ear pain, difficulty swallowing, difficulty handling secretions, 00:50 Respiratory: Positive for shortness of breath, Negative for cough, wheezing, 00:50 Abdomen/GI: Positive for nausea, Negative for vomiting, diarrhea, constipation, 00:50 Skin: Negative for rash, 00:50 Neuro: Negative for altered mental status, numbness, syncope, near syncope, weakness, 00:50 All other systems are negative, cp Exam: 05/16 20:12 ECG was reviewed by the Attending Physician. cp 05/17 00:55 Constitutional: The patient appears alert, awake, non-diaphoretic, non-toxic, well cp developed, well nourished, in obvious pain, uncomfortable, 00:55 Head/Face: Normocephalic, atraumatic. cp 00:55 Eyes: Periorbital structures: appear normal, Conjunctiva: normal, no exudate, no injection, Sclera: no appreciated abnormality, Lids and lashes: appear normal, bilaterally, 00:55 ENT: External ear(s): are unremarkable, Nose: is normal, Mouth: is normal, Posterior pharynx: Airway: no evidence of obstruction, patent, 00:55 Neck: C-spine: vertebral tenderness, is not appreciated, crepitus, is not appreciated, 00:55 Chest/axilla: Axilla: lymphadenopathy, in the left axilla, marked tenderness, skin with no erythema, no abscess observed, Breasts: left breast appears with no erythema/swelling, 00:55 Cardiovascular: Rate: tachycardic, Rhythm: regular, Edema: is not appreciated, JVD: is not appreciated, 00:55 Respiratory: mild respiratory distress is noted, Respirations: labored breathing, that is mild, Breath sounds: are clear throughout, no decreased breath sounds, no stridor, no wheezing, 00:55 Abdomen/GI: Inspection: abdomen appears normal, Bowel sounds: active, all quadrants, Palpation: soft, in all quadrants, moderate abdominal tenderness, in the epigastric area, right upper quadrant and left upper quadrant, rebound tenderness, is not appreciated, 00:55 Back: pain, that is moderate, 00:55 Neuro: Orientation: to person, place \T\ time. Mentation: is normal, Motor: moves all fours, strength is normal, Sensation: is normal, Vital Signs: 05/16 20:03 BP 142 / 90; Pulse 116; Resp 17; Temp 98.4; Pulse Ox 100% ; Weight 61.23 kg; Pain 6/10; dd2 20:33 BP 142 / 90; Pulse 120; Resp 20; Temp 98.4; Pulse Ox 100% on R/A; Pain 8/10; bp 21:59 BP 127 / 74; Pulse 113; Resp 15; Temp 98.4; Pulse Ox 99% ; Pain 0/10; vc1 23:00 BP 127 / 83; Pulse 113; Resp 24; Pulse Ox 95% ; vc1 23:30 BP 120 / 86; Pulse 110; Resp 24; Pulse Ox 95% ; vc1 05/17 00:00 BP 116 / 80; Pulse 102; Resp 20; Pulse Ox 96% ; vc1 01:06 BP 116 / 78; Pulse 89; Resp 17; Temp 98.4; Pulse Ox 97% ; Pain 7/10; bm8 05/16 20:03 Pain Scale: Adult dd2 20:33 Pain Scale: Adult bp 21:59 Pain Scale: Adult vc1 01:06 Pain Scale: Adult bm8 Francisco Coma Score: 05/16 20:33 Eye Response: spontaneous(4). Motor Response: obeys commands(6). Verbal Response: bp oriented(5). Total: 15. 22:11 Eye Response: spontaneous(4). Motor Response: obeys commands(6). Verbal Response: bm8 oriented(5). Total: 15. 05/17 01:06 Eye Response: spontaneous(4). Motor Response: obeys commands(6). Verbal Response: bm8 oriented(5). Total: 15. MDM: 05/16 20:00 Medical Screening Exam initiated cp 20:38 Medical Screening Exam initiated [facility] 05/17 00:00 Differential diagnosis: viral Infection, bacterial infection, bronchitis, pneumonia cp pulmonary embolism, abscess, cellulitis, necrotizing fasciitis. 01:25 Data reviewed: vital signs, nurses notes, lab test result(s), EKG, radiologic studies, cp CT scan, plain films, and as a result, I will discharge patient. 01:25 Consideration of Admission/Observation Escalation of care including cp admission/observation considered. I considered the following discharge prescriptions or medication management in the emergency department Medications were administered in the Emergency Department. See MAR. Independent interpretation of the following test(s) in the Emergency Department EKG: See my EKG interpretation above. Test considered but Not performed: MRI: chest. Care significantly affected by the following chronic conditions: rheumatoid arthritis. Counseling: I had a detailed discussion with the patient and/or guardian regarding the historical points, exam findings, and any diagnostic results supporting the discharge/admit diagnosis, lab results, radiology results, the need for outpatient follow up, a family practitioner, for reevaluation of axillary enlarged nodes and recommendation of mammo, to return to the emergency department if symptoms worsen or persist or if there are any questions or concerns that arise at home, worsening symptoms, fever. Response to treatment: the patient's symptoms have markedly improved after treatment. Special discussion: Based on the patient's history, exam, and Dx evaluation, there is no indication for emergent intervention or inpatient Tx. It is understood by the patient/guardian that if the Sx's persist or worsen they need to return immediately for re-evaluation. 05/16 20:11 Order name: Basic Metabolic Panel; Complete Time: 22:25 cp 05/16 22:25 Interpretation: Normal except: NA 135; K 3.1; GLUC 154; GFR 87. cp 05/16 20:11 Order name: CBC with Diff; Complete Time: 20:51 cp 05/16 22:48 Interpretation: Normal except: WBC 13.40; HGB 11.8; HCT 35.4; MPV 7.1; LYMA 5.1. cp 05/16 20:11 Order name: LFT's; Complete Time: 22:25 cp 05/16 22:48 Interpretation: Normal except: ALT 57; GLOB 3.7; A/G 1.0. cp 05/16 20:11 Order name: Magnesium; Complete Time: 22:25 cp 05/16 20:11 Order name: NT PRO-BNP; Complete Time: 22:25 cp 05/16 20:11 Order name: PT-INR; Complete Time: 20:51 cp 05/16 20:11 Order name: Troponin HS; Complete Time: 22:25 cp 05/17 00:46 Interpretation: Reviewed. cp 05/16 20:11 Order name: Test, Urine; Complete Time: 22:25 cp 05/16 20:11 Order name: UA Rfx Darryl Cult if indicated; Complete Time: 22:25 cp 05/16 20:31 Order name: Test, Serum; Complete Time: 22:25 bp 05/16 22:50 Interpretation: Reviewed. cp 05/16 22:56 Order name: Lactate w/ 2H reflex if indic.; Complete Time: 00:26 cp 05/16 22:56 Order name: CRP; Complete Time: 00:25 cp 05/17 00:26 Interpretation: Abnormal: C-REACTIVE PROT 10.50. cp 05/16 22:56 Order name: Blood Culture Adult (2); Complete Time: 00:45 cp 05/17 00:50 Order name: Troponin High Sensitivity; Complete Time: 01:22 cp 05/17 01:23 Interpretation: Reviewed. cp 05/16 20:11 Order name: XRAY Chest (1 view); Complete Time: 22:25 cp 05/16 20:11 Order name: CT Aorta for Dissection; Complete Time: 22:25 cp 05/16 20:11 Order name: Cardiac monitoring; Complete Time: 20:31 cp 05/16 20:11 Order name: EKG - Nurse/Tech; Complete Time: 20:31 cp 05/16 20:11 Order name: IV Saline Lock; Complete Time: 20:31 cp 05/16 20:11 Order name: Labs collected and sent; Complete Time: 20:31 cp 05/16 20:11 Order name: O2 Per Protocol; Complete Time: 20:31 cp 05/16 20:11 Order name: O2 Sat Monitoring; Complete Time: 20:31 cp EC/12 20:12 Rate is 119 beats/min. Rhythm is regular. MO interval is normal. QRS interval is cp prolonged at 102 msec. QT interval is normal. T waves are Inverted in lead aVR. Interpreted by me. Reviewed by me. Administered Medications: 20:31 Drug: HYDROmorphone IVP 1 mg IVP once Route: IVP; Site: right antecubital; bp 21:54 Follow up: Response: No adverse reaction bm8 20:31 Drug: Ondansetron IVP 4 mg IVP once; over 2 minutes Route: IVP; Site: right antecubital;bp 21:53 Follow up: Response: No adverse reaction bm8 21:07 Drug: Ativan IVP 1 mg IVP once Route: IVP; Site: right antecubital; bm8 21:53 Follow up: Response: No adverse reaction bm8 23:19 Drug: NS 0.9% IV 1000 ml IV at 1 bolus Per protocol; to be given as a bolus over 60 bm8 minutes Route: IV; Rate: 1 bolus; Site: right antecubital; 05/17 00:38 Follow up: Response: No adverse reaction; IV Status: Completed infusion 8 05/16 23:38 Drug: Ketorolac IVP 15 mg IVP once Route: IVP; Site: right antecubital; bm8 05/17 00:37 Follow up: Response: No adverse reaction 8 05/16 23:38 Drug: Clindamycin IVPB 600 mg IVPB once over 30 mins; (mix in 50 mL) Route: IVPB; bm8 Infused Over: 30 mins; Site: right antecubital; 05/17 00:37 Follow up: Response: No adverse reaction; IV Status: Completed infusion bm8 01:05 Drug: metoCLOPramide IVP 10 mg IVP once; over 1 to 2 minutes Route: IVP; Site: right bm8 antecubital; :44 Follow up: Response: No adverse reaction bm8 01:05 Drug: diphenhydrAMINE IVP 25 mg IVP once Route: IVP; Site: right antecubital; bm8 01:43 Follow up: Response: No adverse reaction bm8 01:05 Drug: Dexamethasone IVP 10 mg IVP once; (not to exceed 40 mg) Route: IVP; Site: right bm8 antecubital; :43 Follow up: Response: No adverse reaction bm8 01:05 Drug: Ketorolac IVP 15 mg IVP once Route: IVP; Site: right antecubital; bm8 :43 Follow up: Response: No adverse reaction bm8 01:06 Drug: NS 0.9% IV 250 ml IV at 250 bolus once; to be given as a bolus over 30 minutes bm8 Route: IV; Rate: 250 bolus; Site: right antecubital; :43 Follow up: Response: No adverse reaction; IV Status: Completed infusion bm8 Disposition Summary: 05/17/25 01:26 Discharge Ordered Notes: Location: Home cp Problem: new cp Symptoms: have improved cp Condition: Stable cp Diagnosis - Chest pain, unspecified cp - Localized enlarged lymph nodes - Left Axilla cp - Headache cp - Hypokalemia cp Followup: cp - With: Private Physician - When: 2 - 3 days - Reason: Recheck today's complaints Discharge Instructions: - Discharge Summary Sheet cp - Nonspecific Chest Pain, Adult cp - Potassium Content of Foods cp - Migraine Headache cp - Lymphadenopathy cp Forms: - Medication Reconciliation Form cp - Antibiotic Education cp - Prescription Opioid Use cp - Patient Portal Instructions cp - Leadership Thank You Letter cp Prescriptions: - diclofenac potassium 50 mg Oral tablet - take 1 tablet ORAL route every 12 hours as needed for pain; 20 tablet; Refills: cp 0, Product Selection Permitted - Clindamycin HCl 300 mg Oral Capsule - take 1 capsule ORAL route every 6 hours for 10 days; 40 capsule; Refills: 0, cp Product Selection Permitted - Zofran 4 mg Oral Tablet - take 1 tablet ORAL route every 12 hours As needed; 20 tablet; Refills: 0, cp Product Selection Permitted - methocarbamol 750 mg Oral tablet - take 1 tablet ORAL route 3 times per day; 30 tablet; Refills: 0, Product cp Selection Permitted Addendum: 05/19/2025 07:53 Co-signature as Attending Physician, Marky Chaney MD I agree with the assessment and c kothari plan of care. Signatures: Dispatcher [employer] [facility] Marky Chaney MD MD cha Page, Corey, PA-C PASumiC Liam Villegas, RN RN bp Mukul Girffith, RN RN bm8 MAURICE DE LOS SANTOS RN RN dd2 Corrections: (The following items were deleted from the chart) 05/16 20:11 20:11 BASIC METABOLIC PANEL+C.LAB.BRZ ordered. [facility] 20:11 20:11 CBC+H.LAB.BRZ ordered. [facility] 20:11 20:11 HEPATIC FUNCTION+C.LAB.BRZ ordered. [facility] 20:11 20:11 MAGNESIUM+C.LAB.BRZ ordered. [facility] 20:11 20:11 PROBNP+C.LAB.BRZ ordered. [facility] 20:11 20:11 PROTIME (+INR)+COAG.LAB.BRZ ordered. [facility] 20:11 20:11 Troponin High Sensitivity+C.LAB.BRZ ordered. [facility] 20:11 20:11 Test, Urine+UC.LAB.BRZ ordered. [facility] 20:11 20:11 UA Rfx Darryl Cult if indicated+U.LAB.BRZ ordered. [facility] 20:12 20:11 Chest Single View+RAD.RAD.BRZ ordered. [facility] 20:12 20:12 Angio Aorta For Dissection+CT.RAD.BRZ ordered. [facility] 05/17 00:51 00:51 Troponin High Sensitivity+C.LAB.BRZ ordered. [facility] :43 02:41 ECG was reviewed by the Attending Physician. cp cp : 02:41 Rate is 119 beats/min. Rhythm is regular. MO interval is normal. QRS interval is cp prolonged at 102 msec. QT interval is normal. T waves are Inverted in lead aVR. Interpreted by me. Reviewed by me. cp 05/18 00:42 05/17 00:45 This 45 yrs old Female presents to ER via Ambulatory with complaints of cp Chest Pain. cp 05/18 00:43 05/17 00:45 Associated signs and symptoms: Pertinent positives: fever, shortness of cp breath, body aches, nausea, Pertinent negatives: cough, diarrhea, headache, cp
[2025-05-17 07:14] VITALS: TEMP 98.4
[2025-05-17 07:24] VITALS: BP 116/78; O2SAT 97
== END 2025-05-17 01:44 | disposition home or self-care (01) ==
LOC: ER 19:56
DX: R07.9 Chest pain, unspecified (principal); M79.602 Pain in left arm; F41.9 Anxiety disorder, unspecified; R51.9 Headache, unspecified; E87.6 Hypokalemia; R59.0 Localized enlarged lymph nodes; Z88.0 Allergy status to penicillin
CPT/HCPCS: 96365; 96367; 93005; 87040 ×2; 85025; 81001; 80048; 36415; 83735; 84703; 81025; 85610; 80076; 83605; 84484 ×2; 83880; 86140; 71275; 74175; 71045; 96375; 99285; Q9967; J1885 ×2; J2765; J1200; J1100; J1171; J2405; J7050; J7030